=== PATIENT | male | born 2000 | race Hispanic/Latino ===

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

== ENCOUNTER 2019-06-01 22:55 | Emergency (ER) | payer MEDICAID, OTHER | END 2019-06-02 00:26 | disposition home or self-care (01) | LOC: EDH 22:55 | DX: L73.9 Follicular disorder, unspecified (principal); B86 Scabies; Z90.49 Acquired absence of other specified parts of digestive tract; Z88.0 Allergy status to penicillin; Z72.0 Tobacco use ==

== ENCOUNTER 2021-02-26 18:30 | Emergency (ER) | payer SELFPAY ==
[~2021-02-26] VITALS: Ht 172.7 cm; Wt 92.5 kg
[2021-02-26 18:32] VITALS: BP 128/72
== END 2021-02-26 19:57 | disposition home or self-care (01) ==
LOC: EDH 18:30
DX: S90.424A Blister (nonthermal), right lesser toe(s), initial encounter (principal); X58.XXXA Exposure to other specified factors, initial encounter; Y93.89 Activity, other specified; Y92.89 Other specified places as the place of occurrence of the external cause; Y99.8 Other external cause status
CPT/HCPCS: 99281